=== PATIENT | male | born 1950 | race Caucasian/White ===

== ENCOUNTER → 2020-03-16 | Outpatient (CLI) | payer MEDICARE ==
[2020-03-16 10:30] LABS: CALCIUM 9.1 mg/dL (8.5-10.1); CREATININE 1.5 mg/dL (0.7-1.3); GFR 46.4; PHOSPHORUS 3.7 mg/dL (2.6-4.7); POTASSIUM 4.4 mmol/L (3.5-5.1)
[2020-03-16 10:32] LABS: BILIRUBIN,URINE NEGATIVE (NEG); CLARITY,URINE CLEAR; COLOR,URINE YELLOW; NITRITE,URINE NEGATIVE (NEG); PROTEIN,URINE NEGATIVE (NEG-TRACE); UROBILINOGEN,URINE 0.2 mg/dL (0.2 mg/dL)
[2020-03-16 10:57] LABS: BACTERIA,URINE 0 /HPF (0-FEW); RBC,URINE 0 /HPF (0-2); SQUAMOUS EPITHELIAL CELL,UR FEW /LPF; WBC,URINE 0 /HPF (0-4)
== END | disposition home or self-care (01) ==
LOC: LAB 09:35
PROVIDERS: ATTEND Internal Medicine Nephrology
DX: I12.9 Hypertensive chronic kidney disease with stage 1 through stage 4 chronic kidney disease, or unspecified chronic kidney disease (principal); N18.3 Chronic kidney disease, stage 3 (moderate); E11.21 Type 2 diabetes mellitus with diabetic nephropathy; E11.22 Type 2 diabetes mellitus with diabetic chronic kidney disease; I25.10 Atherosclerotic heart disease of native coronary artery without angina pectoris; I25.5 Ischemic cardiomyopathy; Z68.28 Body mass index [BMI] 28.0-28.9, adult
CPT/HCPCS: 36415; 80069; 81001

== ENCOUNTER → 2020-04-07 | Outpatient (CLI) | payer MEDICARE ==
--- NOTE | 2020-04-07 09:35 | KCIC ---
RENAL COMPLETE BILATERAL History: Reason: ACUTE KIDNEY FAILURE / Spl. Instructions: / History: Comparison: None. Procedure: Transabdominal ultrasound images are obtained of the kidneys and bladder. Findings: Right kidney: measures 11.5 x 5.7 x 6.5 cm. Normal cortical echotexture. Corticomedullary differentiation is preserved. No hydronephrosis. Left kidney: measures 8.4 x 4.2 x 3.7 cm. Lobulated appearance with cortical thinning. No hydronephrosis. Urinary bladder: Prevoid urinary bladder volume of 448 mL. Post void urinary bladder volume 251 mL. Bilateral ureteral jets are identified. No urinary bladder wall thickening. The IVC is normal caliber. The visualized abdominal aorta is normal caliber. IMPRESSION: 1. Lobulated left kidney with cortical thinning. 2. Elevated postvoid residual urinary bladder volume. Electronically signed by: Hasmukh Baig DO (04/07/2020 9:32 AM) [id number]
== END ==
LOC: KCIC US 08:38
PROVIDERS: ATTEND Internal Medicine Nephrology
DX: N17.9 Acute kidney failure, unspecified (principal)
CPT/HCPCS: 76770